=== PATIENT | female | born 1970 | race Caucasian/White ===

== ENCOUNTER 2024-03-01 17:44 | Emergency (ER) | payer OTHER, SELFPAY ==
[2024-03-01 17:59] VITALS: BP 145/82; BP 189/101; PULSE 100; PULSE 106; RESP 16; TEMP 36.8; O2SAT 93; O2SAT 96; BMI 40.8
--- NOTE | 2024-03-01 18:10 | ECG_ITS ---
Test Reason : CHEST PAIN Blood Pressure : / mmHG Vent. Rate : 101 BPM Atrial Rate : 101 BPM P-R Int : 168 ms QRS Dur : 082 ms QT Int : 342 ms P-R-T Axes : 045 -40 053 degrees QTc Int : 443 ms Sinus tachycardia Left axis deviation Anterior infarct , age undetermined Abnormal ECG When compared with ECG of 15-SEP-2008 19:18, Anterior infarct is now Present T wave inversion no longer evident in Inferior leads Referred By: Chris Miller Electronically Signed By:TUSHAR GARZA MD
--- NOTE | 2024-03-01 18:12 | ED.CHESTPAIN ---
HPI - Chest Pain General Chief Complaint: Chest Pain Stated Complaint: CHEST PAIN,SECT 21 Time Seen by Provider: 03/01/24 18:00 Source: patient Mode of arrival: EMS Limitations: no limitations History of Present Illness HPI narrative: Patient with schizoaffective disorder confusion came from [facility] to go to psych floor upstairs while going to floor [facility] patient is started complaining of chest pain to the EMS when spoken to the patient on arrival patient denied any chest pain Related Data Allergies Allergy/AdvReac Type Severity Reaction Status Date / Time No Known Allergies Allergy Mild NOT Unverified 03/01/24 18:02 APPLICABLE Review of Systems Review of Systems: Yes all other systems are reviewed and are negative [facility] Social History Social History Smoked in Last 30 Days: No Advance Directives: No Advance Directives Information Provided: No Do you have a plan to hurt others: No Plan Physical Exam Vital Signs: Vital Signs: Last Vital Signs Temp 98.3 F 03/01/24 21:08 Pulse 96 03/01/24 21:08 Resp 22 H 03/01/24 21:08 BP 155/93 H 03/01/24 21:08 Pulse Ox 94 03/01/24 21:08 O2 Del Method Room Air 03/01/24 21:08 BMI result Body Mass Index 40.8 Appearance: Alert. Oriented X2. No acute distress. Baseline confusion with schizoaffective disorder Eyes: PERRLA, No Nystagmus ENT: Pharynx normal. Oral Mucosa moist Neck: Normal inspection. Neck supple. CVS: Normal heart rate and rhythm. Pulses normal. Respiratory: No respiratory distress. Equal air entry bilateral, no wheezing/rales/rhonchi Abdomen: Soft and nontender. Bowel sounds are present, no mass palpable, no CVA tenderness Skin: Skin warm and dry. Normal skin color. Normal skin turgor. Extremities: No lower extremity edema. No calf tenderness Neuro: Oriented X 2. No motor deficit. No sensory deficit.No cerebellar signs , cranial nerves II-XII intact Medical Decision Making Medical Decision Making MDM Narrative: Patient has schizoaffective disorder with atypical chest pain detailed workup done at [facility] earlier today normal EKG Will check troponin Two sets of troponin negative for delta change patient asymptomatic during stay in the ER denies any chest pain will discharge patient back to [facility] Lab Data [facility] Lab Attestation statement: I reviewed the patient's lab results. Labs: Lab Results 03/01/24 03/01/24 Range/Units 18:43 21:07 Troponin I High Sens 5.4 5.1 (<3.5-17.0) ng/L Independent Interpretation I performed an independent interpretation of an: EKG Interpretation: Normal sinus rhythm heart rate 101 left axis deviation no acute ST T wave changes no acute ischemia Discharge Plan Discharge Clinical Impression: Schizoaffective disorder, Atypical chest pain Patient Disposition: Xfer [facility] Transfer Details: EKG without any ischemic changes 2 sets of troponin negative patient had atypical chest pain medically cleared to go back to inpatient psych facility Print Language: Luxembourger
--- NOTE | 2024-03-01 18:17 | PC.NURSE ---
per records at [facility] pt hx of schizophrenia. pt says she has chest pain but has a hard time discribing it . poor historian. pt is confused. per Dr. Donohue, EKG and troponin ordered.
[2024-03-01 19:06] LABS: Troponin-I High Sensitivity 5.4 ng/L (<3.5-17.0)
[2024-03-01 21:08] VITALS: BP 155/93; PULSE 96; RESP 22; TEMP 36.8; O2SAT 94
[2024-03-01 21:31] LABS: Troponin-I High Sensitivity 5.1 ng/L (<3.5-17.0)
[2024-03-01 22:58] VITALS: BP 155/93; PULSE 96; RESP 18; TEMP 36.8; O2SAT 94
--- NOTE | 2024-03-01 23:22 | PC.NURSE ---
Late entry: This writer technical publications assumed care of this Pt at 1900. Pt A&Ox3, denies any pain. 1:1 sitter at bedside. Pt verbalizing spiritual verses in Bulgarian. Report given to Cyndy LERNER at [facility], Pt to be transported via EMS. Pt aware of plan.
== END 2024-03-01 23:00 ==
PROVIDERS: Emergency Provider Internal Medicine
DX: R07.89 Other chest pain (principal); F25.9 Schizoaffective disorder, unspecified
CPT/HCPCS: 36415; 84484; 93005; 99283; 99284

== ENCOUNTER → 2024-03-01 18:10 | Outpatient (BNV) | payer OTHER, SELFPAY | PROVIDERS: Emergency Provider Internal Medicine; Visit Provider Internal Medicine Cardiovascular Disease | DX: R07.9 Chest pain, unspecified (principal) | CPT/HCPCS: 93010 ==